=== PATIENT | male | born 1960 | race Caucasian/White ===

== ENCOUNTER 2017-06-04 07:30 | Inpatient (IN) | payer OTHER, BC ==
--- NOTE | 2017-06-18 08:08 | PDANEPAE ---
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 kidney function normal now - Liver History Hx Hepatic Disorders: No - Neurological & Psychiatric Hx Hx Neurological and Psychiatric Disorders: Yes Neurological / Psychiatric History Comment: anxiety. insomnia - Cancer History Hx Cancer: No - Congenital Disorder History Hx Congenital Disorders: No - GI History Hx Gastrointestinal Disorders: Yes Gastrointestinal History Comment: diverticulitis. gerd - Other Health History Other Health History: wears glasses. dry itchy skin - Chronic Pain History Chronic Pain: No - Surgical History Prior Surgeries: tonsillectomy. colonscopy ANE Review of Systems Review of Systems: - Exercise capacity METS (RN): 4 METS ANE Patient History - Allergies Allergies/Adverse Reactions: No Known Allergies Allergy (Verified 05/24/17 11:39) - Home Medications Home medications: home medication list seen and reviewed Home Medications: Cholecalciferol Vit D3 [Vitamin D3 (*)] 1,000 units PO DAILY 05/24/17 [Last Taken 06/17/17] Labetalol HCl [Trandate 100 mg (*)] 300 mg PO BID PRN 05/24/17 [Last Taken 06/04] Lisinopril [Zestril 10 mg (*)] 10 mg PO DAILY PRN 05/24/17 [Last Taken 06/18/17 06:30] - Anes Hx Anes Hx: no prior problems ([place] as a kid) - Smoking Hx Smoking Status: Light smoker - Family Anes Hx Family Hx Anesthesia Complications: none ANE Labs/Vital Signs - Vital Signs Height: 185.42 cm Weight: 94.347 kg ANE Physical Exam - Airway Neck exam: FROM Mallampati Score: Class 2 Mouth exam: normal dental/mouth exam - Pulmonary Pulmonary: no respiratory distress - Cardiovascular Cardiovascular: regular rate and rhythym - ASA Status ASA Status: II ANE Anesthesia Plan Anesthesia Plan: general endotracheal anesthesia Specialized Airway: video laryngoscope Total IV Anesthesia: No
[2017-06-18] MEDS ORDERED: cefOXitin SODIUM 2 GM in STERILE WATER INJ 21 ML IV ONE (08:56)
[2017-06-18] MEDS ORDERED: LR 1,000 ML IV ONE (08:57)
[2017-06-18] MEDS ORDERED: LIDOCAINE 1% 2 ML INJ ID PRN (08:57)
--- NOTE | 2017-06-18 08:57 | PDHPUP ---
History & Physical Update H&P update statement: This history and physical update is based on an assessment of the patient which was completed after admission or registration (within 24 hours), but prior to the surgery/procedure. H&P update: H&P reviewed & patient examined, no change in patient's condition since H&P completed
[2017-06-18] MEDS ORDERED: MIDAZOLAM 2 MG/2 ML VIAL IVP ONE (08:59)
[2017-06-18] MEDS ORDERED: BUPIVACAINE 0.5% 30 ML SDV ONE (09:07)
[2017-06-18] MEDS ORDERED: HYDROmorphONE/DILAUDID 2 MG/ML INJ ONE (09:08)
[2017-06-18] MEDS ORDERED: fentaNYL 100 MCG/2 ML INJ ONE ×3 (09:08→14:43)
[2017-06-18] MEDS ORDERED: PROPOFOL 200 MG/20 ML VIAL ONE (09:08)
[2017-06-18] MEDS ORDERED: MIDAZOLAM 2 MG/2 ML VIAL ONE (09:14)
[2017-06-18] MEDS ORDERED: LIDOCAINE 2% 5 ML SDV ONE (09:16)
[2017-06-18] MEDS ORDERED: ROCURONIUM 50 MG/5 ML VIAL ONE ×3 (09:16→11:41)
[2017-06-18] MEDS ORDERED: PROMETHAZINE HCL 25 MG/ML INJ IVP PRN (10:23)
[2017-06-18] MEDS ORDERED: ONDANSETRON 4 MG/2 ML VIAL IVP PRN ×2 (10:23→14:25)
[2017-06-18] MEDS ORDERED: NALOXONE HCL 0.4 MG/ML INJ IVP PRN (10:23)
--- NOTE | 2017-06-18 13:56 | POSTANESTH ---
Post Anesthetic Evaluation Cardiovascular Status: Normal, Stable Respiratory Status: Normal, Stable Level of Consciousness/Mental Status: Can Participate in Eval, Alert and Oriented Pain Control: Adequate, Prn Tx Ordered Nausea/Vomiting Control: Adequate, Prn Tx Ordered Complications Possibly Related to Anesthesia: None Noted
[2017-06-18] MEDS ORDERED: HYDROmorphONE/DILAUDID 1 MG/ML INJ ONE ×2 (13:58→14:43)
[2017-06-18] MEDS: HYDROmorphONE/DILAUDID 1 MG/ML INJ IVP PRN ×7 (14:01→22:00)
[2017-06-18] MEDS: fentaNYL 100 MCG/2 ML INJ IVP PRN ×4 (14:08→15:05)
[2017-06-18] MEDS ORDERED: HYDROmorphONE/DILAUDID 1 MG/ML INJ IVP PRN (14:26)
--- NOTE | 2017-06-18 14:29 | POSTOPPROG ---
Post Op Note Date of Operation: 06/18/17 Surgeon: Marv Orellana Freight Rate Clerk: Lizandro Wisdom MSIII Anesthesiologist: Dr. Matamoros Anesthesia: GET(General Endotracheal) Pre-op Diagnosis: Diverticulitis Post-op Diagnosis: Same Procedure: DV sigmoidectomy Inf/Abcess present in the surg proc area at time of surgery?: No EBL: 50-100
[2017-06-18] MEDS: LR 1,000 ML IV SCH (15:37)
[2017-06-18] MEDS: cefOXitin SODIUM 2 GM in STERILE WATER INJ 21 ML IV SCH (17:19)
[2017-06-18] MEDS: diphenhydrAMINE 25 MG CAP PO PRN (17:26)
[2017-06-18] MEDS ORDERED: ALPRAZolam 1 MG TAB PO SCH (21:00)
[2017-06-19] MEDS: HYDROmorphONE/DILAUDID 1 MG/ML INJ IVP PRN ×11 (00:10→22:28)
[2017-06-19] MEDS: cefOXitin SODIUM 2 GM in STERILE WATER INJ 21 ML IV SCH ×3 (00:10→12:08)
[2017-06-19] MEDS: diphenhydrAMINE 25 MG CAP PO PRN ×2 (03:20→10:20)
[2017-06-19] MEDS: LR 1,000 ML IV SCH (03:22)
[2017-06-19] MEDS ORDERED: LABETALOL HCL 100 MG TAB PO PRN (07:29)
[2017-06-19] MEDS ORDERED: LISINOPRIL 10 MG TAB PO PRN (07:29)
--- NOTE | 2017-06-19 09:18 | SOAPPROG ---
SOAP Progress Note Assessment/Plan: Assessment: S/P Lap sigmoidectomy, doing well. Ambulate, IS. Start clears. Plan: 06/19/17 09:14 Subjective: Patient c/o incisional pain, improving. No N/V/anorexia. No flatus/BM. Ambulating, voiding. Objective: Vital Signs Temp Pulse Resp BP Pulse Ox 37.0 C 71 16 115/83 H 95 06/19/17 07:22 06/19/17 07:22 06/19/17 07:22 06/19/17 07:22 06/19/17 07:22 Laboratory Results 06/19/17 05:19 06/19/17 05:19 06/18/17 06/19/17 06/20/17 05:59 05:59 05:59 Intake Total 2471 1042 Output Total 1825 600 Balance 646 442 Alert, NAD RRR Abd soft, inc TTP Inc C/D/I ICD10 Worksheet Patient Problems: Problems Problem Status Onset Diverticulitis Acute - ICD10 Problem Qualifiers (1) Diverticulitis
--- NOTE | 2017-06-19 13:23 | GOP ---
[f rep st] OPERATIVE REPORT DATE OF OPERATION: 06/18/2017 SURGEON: Donnie Orellana MD COLLAR STITCHER: My Brown MD, whose presence was requested by me and medically necessary for the safe and timely completion of the case. ANESTHESIA: General endotracheal anesthesia per Dr. Matamoros PREOPERATIVE DIAGNOSIS: Diverticulitis. POSTOPERATIVE DIAGNOSIS: Diverticulitis. PROCEDURE PERFORMED: Robotic-assisted sigmoidectomy. FINDINGS: The patient had [id number] inflammation at the junction of the sigmoid and descending colon. No other significant lesions were identified. ESTIMATED BLOOD LOSS: 50 mL. INDICATIONS: A 56-year-old male with a history of recurrent diverticulitis. Risks and benefits of procedure discussed with the patient and his family. Their questions were answered, and they wished to proceed. DESCRIPTION OF PROCEDURE: Patient was in supine position initially. After the induction of adequate general endotracheal anesthesia, the patient was moved to modified lithotomy position. He was then prepped and draped in standard surgical fashion. 0.5% Marcaine was injected throughout the right supraumbilical area. An 8 mm incision was made, and the abdominal wall was elevated. A Veress needle was inserted, and after noting proper pressures, the abdomen was insufflated with carbon dioxide. An 8 mm trocar was passed and the camera followed. There was no apparent damage from trocar placement. The abdomen is evaluated, and the inflammation noted in the junction of the descending and sigmoid colon. No evidence of active infection was identified. Three more 8 mm ports were placed and one 5 mm port throughout the abdomen. These were placed under direct vision after injecting 0.5% Marcaine for local anesthesia. Zczgiu-eu-zsmifgg dissection was then engaged by opening peritoneum with sharp dissection and cautery. Branches of the inferior mesenteric artery were sealed with the vessel sealer. The dissection was continued, and the adhesions holding the sigmoid colon in place were taken down using sharp dissection and cautery as well. The colon was then peeled off the peritoneal sidewall. The peritoneal sidewall was not violated at any time during the procedure. Patient had a moderately redundant sigmoid colon. Due to the proximal nature of the inflammation and the bulk of the diverticulae, decision was made to perform a high resection with a hand-sewn anastomosis. Points of transection were chosen in the distal sigmoid and distal descending colon. Mesentery had been cleared off, and the sites for transection cleared off, as well, using sharp dissection and cautery. The Endo-RAZA stapler with blue loads were fired to complete the transections. Specimen was sent for permanent section, having marked the distal end with a suture. Hemostasis was achieved with cautery. No other lesions were noted. Decision was made to perform a hand-assisted anastomosis. The robot was undocked, and a small incision was made in the left lower quadrant after injecting 0.5% Marcaine for local anesthesia. Subcutaneous tissue was divided using cautery. The muscle was divided similarly, and the abdomen was entered. Specimen was extracted after placing an Asim wound protector and the ends of the colon brought into the wound. There was no tension, and no twisting. A posterior row of 3-0 Vicryl Lembert sutures was placed. Following this, the staple lines were excised. Two separate running 3-0 Vicryl sutures were used for the primary portion of the anastomosis. Once this was completed, an anterior row of 3-0 Vicryl Lembert sutures was placed. Anastomosis was palpated and found to be widely patent. Once again, the area was inspected, and no twisting or tension was identified. The colon was dropped back into the abdomen and the area inspected. Good hemostasis was noted throughout. The abdomen was then thoroughly irrigated and aspirated. The muscle at the mini laparotomy site was closed using 0 PDS in a running fashion, and also the 15 mm port site, which had been enlarged to introduce a stapler in the right lower quadrant , was closed with 0 Vicryl in interrupted fashion. Wounds were thoroughly irrigated, and all sites were closed with 4-0 Monocryl in a subcuticular stitch. The wounds were sterilely dressed, and the patient was returned to the supine position and extubated. He was then taken to the PACU in stable condition. SECOND COLLAR STITCHER: Danette Johns, MS 3. COMPLICATIONS: None. DRAINS: None. /[id number]/MODL MTDD
[2017-06-19] MEDS ORDERED: IOPAMIDOL (ISOVUE-300) 100 ML BTL ONE (15:05)
--- NOTE | 2017-06-19 15:24 | ASMTCMCOM ---
CM Note CM Note Notes: Pt admitted w.diverticulitis; had sigmoidectomy today. Pt lives at home w/. DC needs not clear yet but most likely independant. CM will follow. Date Signed: 06/19/2017 03:24 PM Electronically Signed By:Rocio Geiger RN
[2017-06-19] MEDS: ALPRAZolam 1 MG TAB PO SCH (17:57)
[2017-06-20] MEDS: HYDROmorphONE/DILAUDID 1 MG/ML INJ IVP PRN ×10 (00:38→23:35)
[2017-06-20] MEDS: ALPRAZolam 1 MG TAB PO SCH ×3 (00:39→18:02)
--- NOTE | 2017-06-20 09:20 | SOAPPROG ---
SOAP Progress Note Assessment/Plan: Assessment: S/P Lap sigmoidectomy, improving. Ambulate with PT, IS. Resume clears. Resume BP meds. Plan: 06/19/17 09:14 06/20/17 09:19 Subjective: Patient feels better, pain improved. No N/V. + flatus, - BM. Ambulating, voiding. Objective: Vital Signs Temp Pulse Resp BP Pulse Ox 36.8 C 74 18 127/89 H 94 06/20/17 07:30 06/20/17 07:30 06/20/17 07:30 06/20/17 07:30 06/20/17 07:30 Laboratory Results 06/20/17 05:23 06/20/17 05:23 06/19/17 06/20/17 06/21/17 05:59 05:59 05:59 Intake Total 3236 1102 Output Total 9267 1999 Balance 606 -836 ICD10 Worksheet Patient Problems: Problems Problem Status Onset Diverticulitis Acute - ICD10 Problem Qualifiers (1) Diverticulitis
[2017-06-20] MEDS: LISINOPRIL 10 MG TAB PO SCH (10:13)
[2017-06-21] MEDS: ALPRAZolam 1 MG TAB PO SCH ×3 (01:42→17:47)
[2017-06-21] MEDS: HYDROmorphONE/DILAUDID 1 MG/ML INJ IVP PRN ×3 (01:42→06:25)
[2017-06-21] MEDS ORDERED: MAGNESIUM HYDROXIDE 30 ML UDCUP PO PRN (08:47)
[2017-06-21] MEDS ORDERED: BISACODYL 10 MG SUPP PR PRN (08:47)
[2017-06-21] MEDS ORDERED: LACTULOSE 20 GM/30 ML UDCUP PO PRN (08:47)
[2017-06-21] MEDS ORDERED: POLYETHYLENE GLYCOL 3350 17 GM PKT PO PRN (08:47)
--- NOTE | 2017-06-21 08:49 | SOAPPROG ---
SOAP Progress Note Assessment/Plan: Assessment: S/P Lap sigmoidectomy, improving. Advance diet. Oral pain meds. Plan: 06/19/17 09:14 06/20/17 09:19 06/21/17 08:48 Subjective: Patient feels better, stephanie po, +flatus -BM. Ambulating, voiding. Objective: Vital Signs Temp Pulse Resp BP Pulse Ox 36.4 C 72 18 108/86 H 94 06/21/17 07:20 06/21/17 07:20 06/21/17 07:20 06/21/17 07:20 06/21/17 07:20 Laboratory Results 06/21/17 04:49 06/21/17 04:49 06/20/17 06/21/17 06/22/17 05:59 05:59 05:59 Intake Total 1102 400 Output Total 2000 600 Balance -898 -200 - Time Spent With Patient Time Spent With Patient: Alert, NAD RRR Abd soft, inc TTP Inc with some blistering, no erythema ICD10 Worksheet Patient Problems: Problems Problem Status Onset Diverticulitis Acute - ICD10 Problem Qualifiers (1) Diverticulitis
[2017-06-21] MEDS: SENNOSIDES/DOCUSATE SODIUM TAB PO SCH ×2 (09:39→19:54)
[2017-06-21] MEDS: LISINOPRIL 10 MG TAB PO SCH (09:40)
[2017-06-21] MEDS: OXYCODONE/APAP 5/325 TAB PO PRN ×2 (12:51→19:53)
--- NOTE | 2017-06-21 15:32 | ASMTCMCOM ---
CM Note CM Note Notes: Plan remains the same, anticipate pt will dc home when medically stable. CM available for any changes. DC Plan: Independent Date Signed: 06/21/2017 03:32 PM Electronically Signed By:Wanda Norris RN
[2017-06-21] MEDS: ENOXAPARIN 40 MG/0.4 ML SYR SC SCH (16:56)
[2017-06-22] MEDS: ALPRAZolam 1 MG TAB PO SCH ×2 (03:00→09:38)
[2017-06-22] MEDS: OXYCODONE/APAP 5/325 TAB PO PRN ×3 (03:00→15:52)
[2017-06-22] MEDS: LISINOPRIL 10 MG TAB PO SCH (09:37)
[2017-06-22] MEDS: ENOXAPARIN 40 MG/0.4 ML SYR SC SCH (09:37)
[2017-06-22] MEDS: SENNOSIDES/DOCUSATE SODIUM TAB PO SCH (12:27)
--- NOTE | 2017-06-22 13:28 | SOAPPROG ---
SOAP Progress Note Assessment/Plan: Assessment: S/P Lap sigmoidectomy, doing well. D/c home. Plan: 06/19/17 09:14 06/20/17 09:19 06/21/17 08:48 06/22/17 13:27 Subjective: Patient feels better, stephanie po, + BM, ambulating. Objective: Vital Signs Temp Pulse Resp BP Pulse Ox 36.9 C 75 16 113/84 H 94 06/22/17 07:53 06/22/17 07:53 06/22/17 07:53 06/22/17 07:53 06/22/17 13:26 Laboratory Results 06/21/17 04:49 06/21/17 04:49 06/21/17 06/22/17 06/23/17 05:59 05:59 05:59 Intake Total 400 Output Total 600 Balance -200 Alert, NAD RRR 97% RA Abd soft, NTTP Inc C/D/I; no erythema. ICD10 Worksheet Patient Problems: Problems Problem Status Onset Diverticulitis Acute - ICD10 Problem Qualifiers (1) Diverticulitis
[2017-06-22 15:15] VITALS: BP 107/64; PULSE 86; RESP 18; TEMP 97.6; O2SAT 92
== END 2017-06-22 17:10 | disposition home or self-care (01) | DRG 331 ==
LOC: F3N 06-18 07:59 → F3E 06-18 15:14
PROVIDERS: ADMIT Surgery; ATTEND Surgery
PROC: 8E0W4CZ Robotic Assisted Procedure of Trunk Region, Percutaneous Endoscopic Approach (ICD-10-PCS; principal; 2017-06-18 09:15)
PROC: 0DTN0ZZ Resection of Sigmoid Colon, Open Approach (ICD-10-PCS; principal; 2017-06-18 09:15)
DX: K57.32 Diverticulitis of large intestine without perforation or abscess without bleeding (principal); I10 Essential (primary) hypertension; G47.30 Sleep apnea, unspecified; Z53.31 Laparoscopic surgical procedure converted to open procedure
CPT/HCPCS: 97161-GP; J0694; J1170; J1650; J2250; J2704; J3010; Q9967